=== PATIENT | female | born 1985 | race Caucasian/White ===

== ENCOUNTER 2017-10-11 11:23 | Emergency (ER) | payer MEDICAID ==
[2017-10-11 11:23] VITALS: BMI 24.7
[2017-10-11 11:31] VITALS: RESP 18
--- NOTE | 2017-10-11 12:02 | C.PDOC ---
History Of Present Illness Patient c/o upper back pain for the last 2-3 days, denies injury, but admits working as a gaming cashier, lifting items whole day. Pain is reproducible with movement, bending. Time Seen by Provider: 10/11/17 11:41 Chief Complaint (Nursing): Back Pain History Per: Patient History/Exam Limitations: no limitations Onset/Duration Of Symptoms: Days (2-3) Current Symptoms Are (Timing): Still Present Quality Of Discomfort: "Pain" Severity: Severe Pain Scale Rating Of: 9 Previous Symptoms: None Associated Symptoms: None Exacerbating Factor(s): Turning, Movement Past Medical History Reviewed: Historical Data, Nursing Documentation, Vital Signs Vital Signs: Last Vital Signs Temp 98.3 F 10/11/17 11:28 Pulse 85 10/11/17 11:28 Resp 18 10/11/17 11:28 BP 146/82 10/11/17 11:28 Pulse Ox 99 10/11/17 15:49 - Medical History PMH: Asthma Surgical History: Family History: States: Unknown Family Hx - Social History Hx Tobacco Use: No Hx Alcohol Use: No Hx Substance Use: No - Immunization History Hx Tetanus Toxoid Vaccination: No Hx Influenza Vaccination: Yes Hx Pneumococcal Vaccination: No Review Of Systems Except As Marked, All Systems Reviewed And Found Negative. Physical Exam - Physical Exam Appears: Well, Non-toxic, Other (uncomfortable) Skin: Normal Color, Warm, No Rash Head: Atraumatic, Normacephalic Eye(s): bilateral: Normal Inspection Throat: Normal, No Erythema Neck: Normal, Normal ROM, Supple Chest: Symmetrical, No Deformity, No Tenderness Cardiovascular: Rhythm Regular, No Edema Respiratory: Normal Breath Sounds, No Wheezing Gastrointestinal/Abdominal: Normal Exam, Soft, No Tenderness Back: Vertebral Tenderness (upper back), Paraspinal Tenderness (upper back) Neurological/Psych: Oriented x3, Normal Speech, Normal Cognition ED Course And Treatment - Laboratory Results Result Diagrams: 10/11/17 13:59 10/11/17 13:59 ECG Rhythm: Sinus Rhythm ECG Interpretation: No Acute Changes Rate From EC O2 Sat by Pulse Oximetry: 99 Pulse Ox Interpretation: Normal - Radiology CXR: Interpreted by Tn CXR Interpretation: Yes: No Acute Disease - CT Scan/US Chest CTA Other Rad Studies (CT/US): Read By Radiologist, Radiology Report Reviewed CT/US Interpretation: Creator : Stephen Mckoy MD. Dictator : Stephen Mckoy MD. Field Laboratory Operator : Supervisor Residential : Stephen Mckoy MD. Approver2 : Report Date : 10/11/2017 15:16:47. My Comment : . PROCEDURE: CT Chest with contrast (Pulmonary Angiogram). HISTORY: severe chest/back pain. COMPARISON: None available. TECHNIQUE: Axial computed tomography images were obtained of the chest in the pulmonary arterial phase of enhancement. Coronal and sagittal reformatted images were created and reviewed. Sagittal coronal MIPS reformatted images were obtained. Radiation dose: Total exam DLP = 240 mGy- cm. This CT exam was performed using one or more of the following dose reduction techniques: Automated exposure control, adjustment of the mA and/or kV according to patient size, and/or use of iterative reconstruction technique. FINDINGS: PULMONARY ARTERIES: No evidence of gross central pulmonary embolism. More limited evaluation of the segmental and subsegmental branches given patient motion artifact. AORTA: No acute findings. No thoracic aortic aneurysm. LUNGS: Dependent atelectasis at the lung bases. PLEURAL SPACES: Unremarkable. No effusion or pneuomothorax. HEART: Unremarkable. No cardiomegaly. No significant pericardial effusion. LYMPH NODES: No lymphadenopathy. BONES, CHEST WALL: Unremarkable. No fracture or destructive lesion. OTHER FINDINGS: Prominent liver. IMPRESSION: No evidence of gross central pulmonary embolism. More limited evaluation of the segmental and subsegmental branches given patient motion artifact. Progress Note: 32 yo femal with reproducable upper back pain. Plan: UA,UCG, CXR , Toradol IM, Lidoderm top, Valium po. On re-evaluation patient still c/o severe upper back pain, radiarting to her chest. Labs, EKG and CTA chest ordered. IVF and Morphine IV ordered. Labs , EKG and CTA all w/o acute changes. On re-evaluation patient feels better, ambilatory, no neuro deficit. She is stable to be d/c home with PMD follow up. Disposition - Disposition Referrals: Elsy Jo MD [Staff Provider] - Disposition: HOME/ ROUTINE Disposition Time: 15:46 Condition: IMPROVED Additional Instructions: Follow up with PMD within 1-2 days. Return to ED if feel worse. Prescriptions: Lidocaine 5% [Lidoderm] 1 patch TP DAILY #30 patch Ibuprofen [Motrin Tab] 600 mg PO Q8 #30 tab Famotidine [Pepcid] 20 mg PO BID #20 tab diaZEpam [Valium] 2 mg PO TID #15 tab Instructions: Upper Back Pain (DC) Forms: [employer] (previously [employer] Connect (Bulgarian) - Clinical Impression Clinical Impression: Thoracic back pain
[2017-10-11 12:36] LABS: HCG,QUALITATIVE URINE NEGATIVE (NEGATIVE)
[2017-10-11 12:37] LABS: SQUAMOUS EPITHIAL 1 /hpf (0-5); URINE BILIRUBIN NEGATIVE (NEGATIVE); URINE CLARITY Clear (Clear); URINE COLOR Yellow (YELLOW); URINE GLUCOSE (UA) NORMAL (Normal); URINE LEUKOCYTE ESTERASE NEG Leu/uL (Negative); URINE PROTEIN NEGATIVE (NEGATIVE); URINE UROBILINOGEN NORMAL mg/dL (0.2-1.0)
[2017-10-11 12:38] LABS: URINE BLOOD TRACE (NEGATIVE)
[2017-10-11] MEDS ORDERED: Lidocaine 5% Patch TD STA (12:48)
[2017-10-11] MEDS ORDERED: Lidocaine 5% Patch TD ONE (12:53)
--- NOTE | 2017-10-11 13:14 | RAD ---
Chest x-ray two views History: Chest pain. Comparison: 04/25/2015 Findings: Mild venous congestion. Heart size within normal limits. Bibasilar breast and nipple shadows. Impression: Mild venous congestion.
[2017-10-11] MEDS ORDERED: Iodixanol 320 MG/ML 100 ML BOTTLE IV ONE (13:49)
[2017-10-11 14:02] LABS: BASO # 0.1 K/uL (0.0-0.2); BASO % 0.4 % (0.0-2.0); EOS # 0.3 K/uL (0.0-0.7); EOS % 2.3 % (0.0-4.0); HEMOGLOBIN 13.9 g/dL (11.0-16.0); LYMPH # 2.4 K/uL (1.0-4.3); LYMPH % 19.7 % (20.0-40.0); MEAN CELL VOLUME 89.6 fL (81.0-99.0); MEAN CORPUSCULAR HEMOGLOBIN 30.6 pg (27.0-31.0); MEAN CORPUSCULAR HGB CONC 34.2 g/dL (33.0-37.0); MEAN PLATELET VOLUME 7.8 fL (7.2-11.7); MONO # 0.6 K/uL (0.0-0.8); MONO % 4.7 % (0.0-10.0); NEUT # 8.8 K/uL (1.8-7.0); NEUT % 72.9 % (50.0-75.0); RBC 4.54 Mil/uL (3.80-5.20); RED CELL DISTRIBUTION WIDTH 13.4 % (11.5-14.5)
[2017-10-11] MEDS ORDERED: Morphine 4 MG/ML VIAL ONE (14:02)
[2017-10-11 14:12] LABS: PROTHROMBIN TIME 11.1 SECONDS (9.7-12.2)
[2017-10-11 14:16] LABS: ALB/GLOB RATIO 0.9 (1.0-2.1); CALCIUM 8.7 mg/dl (8.6-10.4); GFR AFRICAN-AMERICAN > 60; GFR NON-AFRICAN AMERICAN > 60
[2017-10-11 14:25] LABS: ALT/SGPT 21 U/L (9-52); AST/SGOT 21 U/L (14-36); BLOOD UREA NITROGEN 10 mg/dL (7-17)
[2017-10-11 14:29] LABS: CK-MB < 0.22 ng/mL (0.0-3.38)
--- NOTE | 2017-10-11 15:18 | CT ---
PROCEDURE: CT Chest with contrast (Pulmonary Angiogram) HISTORY: severe chest/back pain COMPARISON: None available. TECHNIQUE: Axial computed tomography images were obtained of the chest in the pulmonary arterial phase of enhancement. Coronal and sagittal reformatted images were created and reviewed. Sagittal coronal MIPS reformatted images were obtained. Radiation dose: Total exam DLP = 240 mGy-cm. This CT exam was performed using one or more of the following dose reduction techniques: Automated exposure control, adjustment of the mA and/or kV according to patient size, and/or use of iterative reconstruction technique. FINDINGS: PULMONARY ARTERIES: No evidence of gross central pulmonary embolism. More limited evaluation of the segmental and subsegmental branches given patient motion artifact. AORTA: No acute findings. No thoracic aortic aneurysm. LUNGS: Dependent atelectasis at the lung bases. PLEURAL SPACES: Unremarkable. No effusion or pneuomothorax. HEART: Unremarkable. No cardiomegaly. No significant pericardial effusion. LYMPH NODES: No lymphadenopathy. BONES, CHEST WALL: Unremarkable. No fracture or destructive lesion OTHER FINDINGS: Prominent liver. IMPRESSION: No evidence of gross central pulmonary embolism. More limited evaluation of the segmental and subsegmental branches given patient motion artifact.
[2017-10-11 16:07] VITALS: BP 113/73; PULSE 67; TEMP 99.2; O2SAT 100
--- NOTE | 2017-10-12 23:05 | CARD ---
APPROVED REPORT EKG Measurement Heart [id number] MI [id number] [id number] <Conclusion> Sinus rhythm with short MI Otherwise normal ECG
== END 2017-10-11 16:07 | disposition home or self-care (01) ==
LOC: C.ER 11:23
DX: M54.6 Pain in thoracic spine (principal)
CPT/HCPCS: 71046; 71275; 80053; 81001; 82550; 82553; 84484; 84703; 85025; 85610; 85730; 93005; 96372; 96374; 99284; J1885; J2270; Q9967